=== PATIENT | female | born 1950 | race Caucasian/White ===

== ENCOUNTER 2024-10-27 15:46 | Observation (INO) ==
--- NOTE | 2024-10-27 17:40 | EKG ---
Test Reason : sob Blood Pressure : */* mmHG Vent. Rate : 70 BPM Atrial Rate : 70 BPM P-R Int : 134 ms QRS Dur : 94 ms QT Int : 410 ms P-R-T Axes : 28 5 24 degrees QTc Int : 442 ms Normal sinus rhythm Moderate voltage criteria for LVH, may be normal variant ( R in aVL , Rubio product ) Nonspecific ST abnormality Abnormal ECG No previous ECGs available Confirmed by Bill Arzate MD ([id number]) on 10/28/2024 7:33:55 AM Referred By: Confirmed By: Bill Arzate MD
[2024-10-27 19:23] LABS: BASOPHILS % (AUTO) 0.7 % (0.2-1.0); EOSINOPHILS # (AUTO) 0.1 x10^3/uL (0.0-0.2); EOSINOPHILS % (AUTO) 2.5 % (0.9-2.9); HEMATOCRIT 40.4 % (36.0-47.0); HEMOGLOBIN 13.9 g/dL (12.0-16.0); LYMPHOCYTES # (AUTO) 1.5 X10^3/uL (1.3-2.9); LYMPHOCYTES % (AUTO) 28.7 % (21.0-51.0); MEAN CORPUSCULAR HEMOGLOBIN 30.8 pg (27.0-34.0); MEAN CORPUSCULAR HGB CONC 34.4 g/dL (33.0-35.0); MEAN CORPUSCULAR VOLUME 89.4 fL (80.0-100.0); MEAN PLATELET VOLUME 7.5 fL (7.4-11.0); MONOCYTES # (AUTO) 0.4 x10^3/uL (0.3-0.8); MONOCYTES % (AUTO) 8.2 % (0.0-13.0); NEUTROPHILS # (AUTO) 3.2 x10^3/uL (2.2-4.8); NEUTROPHILS % (AUTO) 59.9 % (42.0-75.0); PLATELET COUNT 158 X10^3/uL (150.0-450.0); RED BLOOD COUNT 4.52 X10^6/uL (3.5-5.4); RED CELL DISTRIBUTION WIDTH 12.9 % (11.6-16.5); WHITE BLOOD COUNT 5.3 X10^3/uL (3.6-10.0)
[2024-10-27 19:32] LABS: ALANINE AMINOTRANSFERASE 15 Units/L (12-78); ALBUMIN 3.7 g/dL (3.4-5.0); ALKALINE PHOSPHATASE 76 Units/L (46-116); ASPARTATE AMINO TRANSFERASE 22 Units/L (15-37); BLOOD UREA NITROGEN 10 mg/dL (7-18); CALCIUM 8.8 mg/dL (8.5-10.1); CARBON DIOXIDE 27.3 mmol/L (21-32); CHLORIDE 101 mmol/L (98-107); CREATININE 1.23 mg/dL (0.55-1.02); GLUCOSE 93 mg/dL (65-99); POTASSIUM 3.3 mmol/L (3.5-5.1); SODIUM 138 mmol/L (136-145); TOTAL PROTEIN 7.3 g/dL (6.4-8.2); eGFR NON BLACK RACES 45 (>60)
[2024-10-27] MEDS: NS 250 ML IV 25 ML IV PRN (20:53)
[2024-10-27] MEDS: ZOSYN VIAL 3.375 GRAMS 3.375 G in NS 100 ML IV 100 ML IV SCH (20:53)
[2024-10-27] MEDS: ZOFRAN INJ 4 MG VIAL IVP PRN (20:55)
[2024-10-27] MEDS: PULMICORT NEB TX 0.5 MG NEB SCH (21:12)
[2024-10-27] MEDS: DUONEB 0.5 MG/3 MG (3 mL) NEB SCH (21:12)
[2024-10-27] MEDS ORDERED: ATIVAN TAB 0.5 MG PO PRN (21:37)
[2024-10-27] MEDS ORDERED: AUGMENTIN 875 MG/125 MG TAB PO SCH (22:00)
[2024-10-27] MEDS: NS 1,000 ML IV 1,000 ML IV SCH (22:30)
[2024-10-28 06:16] LABS: BASOPHILS % (AUTO) 0.5 % (0.2-1.0); EOSINOPHILS # (AUTO) 0.2 x10^3/uL (0.0-0.2); LYMPHOCYTES # (AUTO) 1.8 X10^3/uL (1.3-2.9); LYMPHOCYTES % (AUTO) 34.1 % (21.0-51.0); MEAN CORPUSCULAR HEMOGLOBIN 30.5 pg (27.0-34.0); MEAN CORPUSCULAR HGB CONC 34.3 g/dL (33.0-35.0); MEAN CORPUSCULAR VOLUME 89.1 fL (80.0-100.0); MEAN PLATELET VOLUME 7.4 fL (7.4-11.0); MONOCYTES # (AUTO) 0.5 x10^3/uL (0.3-0.8); MONOCYTES % (AUTO) 8.9 % (0.0-13.0); NEUTROPHILS # (AUTO) 2.8 x10^3/uL (2.2-4.8); NEUTROPHILS % (AUTO) 53.5 % (42.0-75.0); PLATELET COUNT 163 X10^3/uL (150.0-450.0); RED BLOOD COUNT 4.26 X10^6/uL (3.5-5.4); RED CELL DISTRIBUTION WIDTH 13.2 % (11.6-16.5); WHITE BLOOD COUNT 5.3 X10^3/uL (3.6-10.0)
[2024-10-28 06:25] LABS: ALANINE AMINOTRANSFERASE 15 Units/L (12-78); ALBUMIN 3.1 g/dL (3.4-5.0); ALKALINE PHOSPHATASE 66 Units/L (46-116); ASPARTATE AMINO TRANSFERASE 20 Units/L (15-37); BLOOD UREA NITROGEN 10 mg/dL (7-18); CALCIUM 8.3 mg/dL (8.5-10.1); CHLORIDE 103 mmol/L (98-107); CREATININE 1.08 mg/dL (0.55-1.02); GLUCOSE 90 mg/dL (65-99); POTASSIUM 3.5 mmol/L (3.5-5.1); SODIUM 140 mmol/L (136-145); TOTAL PROTEIN 6.4 g/dL (6.4-8.2); eGFR NON BLACK RACES 53 (>60)
--- NOTE | 2024-10-28 06:25 | RAD ---
EXAM:CHEST, 1 VIEWHISTORY:sob, cough;COMPARISON:NoneFINDINGS:The cardiomediastinal silhouette is normal in size.No acute airspace disease. No pneumothorax or effusion.No acute osseous abnormality.IMPRESSION:No acute cardiopulmonary disease.THIS IS AN ELECTRONICALLY VERIFIED FINAL REPORT10/28/2024 6:22 AM - Electronically signed by Anibal Sutton MD
[2024-10-28] MEDS ORDERED: CONSULT PHARMACY - POTASSIUM & MAGNESIUM XX SCH ×2 (08:00→09:00)
[2024-10-28] MEDS ORDERED: CITALOPRAM 40 MG PO SCH (09:00)
[2024-10-28] MEDS: BENICAR PO SCH (09:01)
[2024-10-28] MEDS: CELEBREX PO SCH (09:01)
[2024-10-28] MEDS: ZyrTEC TAB 10 MG PO SCH (09:02)
[2024-10-28] MEDS: CELEXA PO SCH (09:02)
[2024-10-28] MEDS: K-DUR TAB 20 MEQ PO SCH (09:02)
[2024-10-28] MEDS: MAG-OX TAB PO SCH (09:02)
--- NOTE | 2024-10-28 11:11 | DR.H&P ---
H&P History & Physical for Day of: H&P Date: 10/28/24 Chief Complaint Chief Complaint: SOB, cough History of Present Illness History of Present Illness: Ms Cardenas is a 74y/o female with a PMH of HTN, HLD and anxiety presented with worsening URI symptoms including cough, congestion and SOB. She had been sick since last week and was being treated outpatient with antibiotics. She was seen at PCP office yesterday with worsening symptoms so was directly admitted for further management. She continues to have dry hacking cough and SOB. She was initially on 2L NC. CXR was negative for acute changes. She is currently on Zosyn, nebs and pulmicort. Labs/imaging reviewed: -WBC 5.3 Hgb 13.0 Plt 163 K 3.5 BUN/Cr 05/27. Mag 1.8 -CXR: no acute changes -AIT pending -Blood Cx pending Plan: admit to med-surg, Wean O2 as tolerated. Continue nebs, pulmicort and IS. Continue IV Zosyn. Continue cough medicine, mucinex. Continue hydration. Will order CTA chest to evaluate further. Follow AIT and pending cultures. Resume h ome medications. Ambulate as tolerated. SCDs. Replace electrolytes prn. Monitor AM labs/imaging. Past Surgical History Surgical History: Cholecystectomy Family History Family Medical History: [place] Social History Does patient currently use any type of tobacco product: No Have you used tobacco products in the last 12 months: No Type of Tobacco Use: None Does any household member use tobacco: No Alcohol Use: None Drug Use: None Medications Home Medications: Home Medications Medication Instructions Recorded Confirmed Type amoxicillin 875 mg-potassium 1 tab PO BID 10/27/24 10/27/24 History clavulanate 125 mg tablet celecoxib 200 mg capsule 200 mg PO DAILY 10/27/24 10/27/24 History citalopram 40 mg tablet 40 mg PO DAILY 10/27/24 10/27/24 History levocetirizine 5 mg tablet 5 mg PO HS 10/27/24 10/27/24 History lorazepam 0.5 mg tablet 0.5 mg PO HS 10/27/24 10/27/24 History olmesartan 40 mg tablet 40 mg PO DAILY 10/27/24 10/27/24 History simvastatin 40 mg tablet 40 mg PO HS 10/27/24 10/27/24 History Allergies Allergies Allergy/AdvReac Type Severity Reaction Status Date / Time codeine AdvReac Mild Verified 10/27/24 17:45 Labs 10/28/24 05:37 10/28/24 05:37 Labs: 10/27/24 17:20 Sputum - Expectorated Sputum Sputum Culture - Preliminary 10/27/24 17:20 Sputum - Expectorated Sputum - Final Laboratory WBC 5.3 X10^3/uL (3.6-10.0) 10/28/24 05:37 RBC 4.26 X10^6/uL (3.5-5.4) 10/28/24 05:37 Hgb 13.0 g/dL (12.0-16.0) 10/28/24 05:37 Hct 38.0 % (36.0-47.0) 10/28/24 05:37 MCV 89.1 fL (80.0-100.0) 10/28/24 05:37 MCH 30.5 pg (27.0-34.0) 10/28/24 05:37 MCHC 34.3 g/dL (33.0-35.0) 10/28/24 05:37 RDW 13.2 % (11.6-16.5) 10/28/24 05:37 Plt Count 163 X10^3/uL (150.0-450.0) 10/28/24 05:37 MPV 7.4 fL (7.4-11.0) 10/28/24 05:37 Neut % (Auto) 53.5 % (42.0-75.0) 10/28/24 05:37 Lymph % (Auto) 34.1 % (21.0-51.0) 10/28/24 05:37 [place] % (Auto) 8.9 % (0.0-13.0) 10/28/24 05:37 Eos % (Auto) 3.0 % (0.9-2.9) H 10/28/24 05:37 Baso % (Auto) 0.5 % (0.2-1.0) 10/28/24 05:37 Neut # (Auto) 2.8 x10^3/uL (2.2-4.8) 10/28/24 05:37 Lymph # (Auto) 1.8 X10^3/uL (1.3-2.9) 10/28/24 05:37 [place] # (Auto) 0.5 x10^3/uL (0.3-0.8) 10/28/24 05:37 Eos # (Auto) 0.2 x10^3/uL (0.0-0.2) 10/28/24 05:37 Baso # (Auto) 0.0 X10^3/uL (0.0-0.1) 10/28/24 05:37 Absolute Nucleated RBC 0.3 /100WBC 10/28/24 05:37 Sodium 140 mmol/L (136-145) 10/28/24 05:37 Corrected Sodium TNP 10/28/24 05:37 Potassium 3.5 mmol/L (3.5-5.1) 10/28/24 05:37 Chloride 103 mmol/L (98-107) 10/28/24 05:37 Carbon Dioxide 28.0 mmol/L (21-32) 10/28/24 05:37 BUN 10 mg/dL (7-18) 10/28/24 05:37 Creatinine 1.08 mg/dL (0.55-1.02) H 10/28/24 05:37 Est GFR (MDRD) Af Amer > 60 (>60) 10/28/24 05:37 Est GFR (MDRD) Non-Af 53 (>60) L 10/28/24 05:37 Glucose 90 mg/dL (65-99) 10/28/24 05:37 Lactic Acid 0.8 mmol/L (0.4-2.0) 10/27/24 18:21 Calcium 8.3 mg/dL (8.5-10.1) L 10/28/24 05:37 Corrected Calcium 9.0 mg/dL (8.5-10.1) 10/28/24 05:37 Magnesium 1.8 mg/dL (2.0-2.9) L 10/28/24 05:37 Total Bilirubin 0.70 mg/dL (0.2-1.0) 10/28/24 05:37 AST 20 Units/L (15-37) 10/28/24 05:37 ALT 15 Units/L (12-78) 10/28/24 05:37 Alkaline Phosphatase 66 Units/L (46-116) 10/28/24 05:37 Troponin I High Sens 7.0 ng/L (4.0-60.0) 10/27/24 18:21 B-Natriuretic Peptide 60.9 pg/mL (0-79) 10/27/24 18:21 Total Protein 6.4 g/dL (6.4-8.2) 10/28/24 05:37 Albumin 3.1 g/dL (3.4-5.0) L 10/28/24 05:37 Globulin 3.3 g/dL (2.5-4.5) 10/28/24 05:37 Albumin/Globulin Ratio 0.9 Ratio (1.1-2.1) L 10/28/24 05:37 Review of Systems Constitutional: Weakness and Malaise Eyes: No Symptoms Reported ENT: No Symptoms Reported Respiratory: Cough, Shortness of Breath and SOB with Excertion Cardiovascular: No Symptoms Reported Gastrointestinal: Nausea and Vomiting Genitourinary: No Symptoms Reported Musculoskeletal: Other (chest wall pain) Skin: No Symptoms Reported Neurological: No Symptoms Reported Physical Exam Vital Signs: Vital Signs Temperature 98.4 F Temperature 98.2 F Temperature 98.2 F Pulse Rate [Right Radial] 77 Pulse Rate [Right Radial] 78 Pulse Rate [Right Radial] 78 Pulse Rate 77 Pulse Rate 80 Respiratory Rate 20 Respiratory Rate 16 Respiratory Rate 16 Blood Pressure [Left Arm] 162/85 Blood Pressure [Left Arm] 135/74 Blood Pressure [Left Arm] 135/74 O2 Sat by Pulse Oximetry 94 O2 Sat by Pulse Oximetry 98 O2 Sat by Pulse Oximetry 97 O2 Sat by Pulse Oximetry 94 O2 Sat by Pulse Oximetry 94 Oriented: Normal Eyes: Normal Throat: Normal Respiratory: Rhonchi Throughout Auscultation: Bowel Sounds: Normal Palpation: Normal Tenderness: Normal Skin: Normal Musculoskeletal: Normal Psychiatric: Normal Mood Description: Calm Affect: Normal Speech Pattern: Clear and Appropriate Assessment/Plan (1) Acute respiratory failure: Qualifiers: Respiratory failure complication: hypoxia Qualified Code(s): J96.01 - Acute respiratory failure with hypoxia Status: Acute (2) Bronchitis: Status: Acute (3) Hypomagnesemia: Status: Acute (4) Dehydration: Status: Acute (5) HTN (hypertension): Qualifiers: Hypertension type: primary hypertension Qualified Code(s): I10 - Essential (primary) hypertension Status: Chronic (6) Anxiety: Status: Chronic Review H&P Reviewed: Yes Patient was examined?: Yes
[2024-10-28] MEDS: MUCINEX DM PO SCH (11:30)
[2024-10-28] MEDS: DUONEB 0.5 MG/3 MG (3 mL) NEB SCH (13:11)
--- NOTE | 2024-10-28 15:53 | CT ---
EXAM: CTA CHEST WITH INTRAVENOUS CONTRAST HISTORY: Shortness of breath. Cough. TECHNIQUE: Spiral axial CT images are obtained through the chest with the administration of intraveno us contrast. Coronal, sagittal and 3D MIP images are reformatted. COMPARISON: None available. FINDINGS: CARDIOVASCULAR: There is no evidence for pulmonary embolic disease. There is mild cardiomegaly with four-chamber enlargement. No pericardial effusion is seen. There is aortic atherosclerosis marked b y calcified mural plaques, without evidence for aortic aneurysm, dissection, or rupture. MEDIASTINUM AND PAULA: There is evidence for nonspecific shotty symmetrical mediastinal and hilar lymp hadenopathy; DDX includes (but is not limited to) granulomatous lymphadenopathy (e.g. sarcoidosis and tuberculosis) , and malignant lymphadenopathy (e.g. lymphoma and metastatic disease). Clinical corre lation is advised. No mass lesion, emphysema, or abnormal fluid collection is seen. There is a larg e (approximately 7.5 cm transverse by 6.4 cm AP by 7.8 cm CC) retrocardiac hiatal hernia containing c ollapsed proximal stomach; DDx includes sequela of distal esophagectomy and gastric pull-up reanastom osis. Correlation with the surgical history is advised. Axial image 89; sagittal image 87. LUNGS: There is mild diffuse subpleural interstitial fibrosis, especially in the lower lung kuo; n onspecific finding; consider sarcoidosis in light of concomitant lymphadenopathy. There is no acute parenchymal infiltrate, lung nodule, or endobronchial obstructing lesion seen. No pleural effusion o r pneumothorax is evident. CHEST WALL: There are no chest wall lesions seen. The visualized bony structures are within normal l imits. No axillary lymphadenopathy is noted. UPPER ABDOMEN: Limited views through the upper abdomen demonstrate no gross acute abnormality. There is an approximately 2.8 cm exophytic anterior right lower pole renal cyst. Status post cholecystect americo. IMPRESSION: 1. No evidence for pulmonary embolic disease. 2. Mild cardiomegaly with four-chamber enlargement. 3. Aortic atherosclerosis marked by calcified mural plaques, without evidence for aortic aneurysm, d issection, or rupture. 4. Evidence for nonspecific shotty symmetrical mediastinal and hilar lymphadenopathy; DDX includes ( but is not limited to) granulomatous lymphadenopathy (e.g. sarcoidosis and tuberculosis) , and malign ant lymphadenopathy (e.g. lymphoma and metastatic disease). Clinical correlation is advised. 5. Large (approximately 7.5 cm transverse by 6.4 cm AP by 7.8 cm CC) retrocardiac hiatal hernia cont aining collapsed proximal stomach; DDx includes sequela of distal esophagectomy and gastric pull-up r eanastomosis. Correlation with the surgical history is advised. Axial image 89; sagittal image 87. 6. Mild diffuse subpleural interstitial fibrosis, especially in the lower lung kuo; nonspecific f inding; consider sarcoidosis in light of concomitant lymphadenopathy. 3. No acute parenchymal infiltrate, pleural effusion, endobronchial obstructing lesion or pneumothor ax seen. THIS IS AN ELECTRONICALLY VERIFIED FINAL REPORT 10/28/2024 3:48 PM - Electronically signed by Zaki Winter MD
[2024-10-28 17:43] VITALS: BMI 33.3
[2024-10-28] MEDS: ZOCOR TAB 40 MG PO SCH (20:10)
[2024-10-28] MEDS: MAALOX or MYLANTA PO PRN (21:51)
[2024-10-29 07:03] LABS: ALANINE AMINOTRANSFERASE 13 Units/L (12-78); ALBUMIN 3.1 g/dL (3.4-5.0); ALKALINE PHOSPHATASE 65 Units/L (46-116); ASPARTATE AMINO TRANSFERASE 19 Units/L (15-37); BLOOD UREA NITROGEN 8 mg/dL (7-18); CALCIUM 8.1 mg/dL (8.5-10.1); CARBON DIOXIDE 26.8 mmol/L (21-32); CHLORIDE 107 mmol/L (98-107); COR CA(FOR HYPOALB) 8.8 mg/dL (8.5-10.1); CREATININE 1.06 mg/dL (0.55-1.02); GLUCOSE 96 mg/dL (65-99); POTASSIUM 4.1 mmol/L (3.5-5.1); SODIUM 141 mmol/L (136-145); TOTAL PROTEIN 6.4 g/dL (6.4-8.2); eGFR NON BLACK RACES 54 (>60)
[2024-10-29 07:38] LABS: BASOPHILS % (AUTO) 0.8 % (0.2-1.0); EOSINOPHILS # (AUTO) 0.1 x10^3/uL (0.0-0.2); EOSINOPHILS % (AUTO) 2.2 % (0.9-2.9); HEMATOCRIT 38.3 % (36.0-47.0); LYMPHOCYTES # (AUTO) 1.7 X10^3/uL (1.3-2.9); LYMPHOCYTES % (AUTO) 31.2 % (21.0-51.0); MEAN CORPUSCULAR HEMOGLOBIN 30.4 pg (27.0-34.0); MEAN CORPUSCULAR VOLUME 89.5 fL (80.0-100.0); MEAN PLATELET VOLUME 7.7 fL (7.4-11.0); MONOCYTES # (AUTO) 0.3 x10^3/uL (0.3-0.8); MONOCYTES % (AUTO) 5.8 % (0.0-13.0); NEUTROPHILS # (AUTO) 3.4 x10^3/uL (2.2-4.8); RED BLOOD COUNT 4.28 X10^6/uL (3.5-5.4); RED CELL DISTRIBUTION WIDTH 12.8 % (11.6-16.5); WHITE BLOOD COUNT 5.6 X10^3/uL (3.6-10.0)
[2024-10-29 07:39] LABS: PLATELET COUNT 163 X10^3/uL (150.0-450.0)
[2024-10-29] MEDS: TYLENOL 325 MG TAB PO PRN (08:37)
[2024-10-29] MEDS: PREDNISONE TAB 20 MG PO SCH (10:10)
[2024-10-29 11:59] VITALS: BP 147/81; PULSE 79; RESP 20; TEMP 97.8; O2SAT 97
[2024-10-29] MEDS: TUSSIONEX PENNKINETIC SUSP PO PRN (14:50)
--- NOTE | 2024-11-04 10:47 | W.DIS.FURT ---
Summary of Discharge Discharge Summary of Date Date of Exam: 10/29/24 Admission Date Date of Admission: 10/28/24 Admission Diagnosis Hospital Course: Ms Cardenas is a 74y/o female with a PMH of HTN, HLD and anxiety presented with worsening URI symptoms including cough, congestion and SOB. She had been sick since last week and was being treated outpatient with antibiotics. She was seen at PCP office yesterday with worsening symptoms so was directly admitted for further management. She continues to have dry hacking cough and SOB. She was initially on 2L NC. CXR was negative for acute changes. She is currently on Zosyn, nebs and pulmicort. AIT showed RSV infection. CTA-chest was also done. It was negative for PE but did show hilar LAD, possible malignancy LAD. Mild diffuse interstitial fibrosis, consider sarcoidosis. These findings were discussed with the patient. Her labs were monitored daily and electrolytes replaced as needed. She was on room air. She was ambulating and stable for discharge. She was sent home on PO steroids. She will f/u with PCP and have outpatient work up. Vital Signs: Vital Signs (72 hours) 10/27/24 17:30 10/27/24 17:20 10/27/24 17:46 Temperature 97.5 F L 97.5 F L Pulse Rate 84 Pulse Rate [Bilateral Radial] 77 Pulse Rate [Right Radial] Respiratory Rate 19 19 Blood Pressure [Left Arm] 134/77 O2 Sat by Pulse Oximetry 93 L 96 Oxygen Delivery Method Room Air Room Air Nasal Cannula Oxygen Flow Rate 2 2 FIO2% 28 10/27/24 17:30 10/27/24 20:00 10/27/24 19:00 Temperature 97.9 F Pulse Rate Pulse Rate [Bilateral Radial] Pulse Rate [Right Radial] 73 Respiratory Rate 16 Blood Pressure [Left Arm] 130/71 O2 Sat by Pulse Oximetry 95 Oxygen Delivery Method Room Air Room Air Room Air Oxygen Flow Rate FIO2% 10/28/24 00:00 10/27/24 21:10 10/27/24 21:05 Temperature 98.0 F Pulse Rate 105 H Pulse Rate [Bilateral Radial] Pulse Rate [Right Radial] 76 Respiratory Rate 16 Blood Pressure [Left Arm] 131/59 O2 Sat by Pulse Oximetry 96 97 Oxygen Delivery Method Room Air Nasal Cannula Oxygen Flow Rate 2 FIO2% 28 10/28/24 04:00 10/28/24 04:00 10/28/24 05:50 Temperature 98.2 F 98.2 F Pulse Rate 80 Pulse Rate [Bilateral Radial] Pulse Rate [Right Radial] 78 78 Respiratory Rate 16 16 Blood Pressure [Left Arm] 135/74 135/74 O2 Sat by Pulse Oximetry 94 L 94 L 97 Oxygen Delivery Method Room Air Room Air Oxygen Flow Rate FIO2% 10/28/24 05:40 10/28/24 07:00 10/28/24 08:00 Temperature 98.4 F Pulse Rate Pulse Rate [Bilateral Radial] Pulse Rate [Right Radial] 77 Respiratory Rate 20 Blood Pressure [Left Arm] 162/85 O2 Sat by Pulse Oximetry 98 Oxygen Delivery Method Nasal Cannula Room Air Room Air Oxygen Flow Rate 2 FIO2% 28 10/28/24 09:12 10/28/24 09:12 10/28/24 11:58 Temperature 98.1 F Pulse Rate 77 Pulse Rate [Bilateral Radial] Pulse Rate [Right Radial] 82 Respiratory Rate 20 Blood Pressure [Left Arm] 120/56 O2 Sat by Pulse Oximetry 94 L 94 L Oxygen Delivery Method Room Air Room Air Oxygen Flow Rate 2 FIO2% 28 10/28/24 15:42 10/28/24 19:00 10/28/24 20:00 Temperature 97.8 F 97.8 F Pulse Rate Pulse Rate [Bilateral Radial] Pulse Rate [Right Radial] 76 81 Respiratory Rate 20 16 Blood Pressure [Left Arm] 129/60 137/69 O2 Sat by Pulse Oximetry 94 L 99 Oxygen Delivery Method Room Air Room Air Room Air Oxygen Flow Rate FIO2% 10/29/24 00:00 10/28/24 21:13 10/29/24 03:30 Temperature 98.7 F Pulse Rate 66 Pulse Rate [Bilateral Radial] Pulse Rate [Right Radial] 78 Respiratory Rate 18 Blood Pressure [Left Arm] 125/68 O2 Sat by Pulse Oximetry 94 L 98 Oxygen Delivery Method Room Air Room Air Oxygen Flow Rate FIO2% 10/29/24 04:00 10/29/24 08:37 10/29/24 08:00 Temperature 98.5 F Pulse Rate Pulse Rate [Bilateral Radial] Pulse Rate [Right Radial] 75 77 Respiratory Rate 16 18 20 Blood Pressure [Left Arm] 145/80 137/74 O2 Sat by Pulse Oximetry 93 L 97 Oxygen Delivery Method Room Air Room Air Oxygen Flow Rate FIO2% 10/29/24 08:55 10/29/24 08:56 10/29/24 07:00 Temperature Pulse Rate 63 Pulse Rate [Bilateral Radial] Pulse Rate [Right Radial] Respiratory Rate 18 Blood Pressure [Left Arm] O2 Sat by Pulse Oximetry 98 Oxygen Delivery Method Room Air Room Air Oxygen Flow Rate 2 FIO2% 28 10/29/24 09:37 10/29/24 11:58 Temperature 97.8 F Pulse Rate Pulse Rate [Bilateral Radial] Pulse Rate [Right Radial] 79 Respiratory Rate 17 20 Blood Pressure [Left Arm] 147/81 O2 Sat by Pulse Oximetry 97 Oxygen Delivery Method Room Air Oxygen Flow Rate FIO2% Labs: Laboratory Last Values WBC 5.6 X10^3/uL (3.6-10.0) 10/29/24 06:34 RBC 4.28 X10^6/uL (3.5-5.4) 10/29/24 06:34 Hgb 13.0 g/dL (12.0-16.0) 10/29/24 06:34 Hct 38.3 % (36.0-47.0) 10/29/24 06:34 MCV 89.5 fL (80.0-100.0) 10/29/24 06:34 MCH 30.4 pg (27.0-34.0) 10/29/24 06:34 MCHC 34.0 g/dL (33.0-35.0) 10/29/24 06:34 RDW 12.8 % (11.6-16.5) 10/29/24 06:34 Plt Count 163 X10^3/uL (150.0-450.0) 10/29/24 06:34 MPV 7.7 fL (7.4-11.0) 10/29/24 06:34 Neut % (Auto) 60.0 % (42.0-75.0) 10/29/24 06:34 Lymph % (Auto) 31.2 % (21.0-51.0) 10/29/24 06:34 [place] % (Auto) 5.8 % (0.0-13.0) 10/29/24 06:34 Eos % (Auto) 2.2 % (0.9-2.9) 10/29/24 06:34 Baso % (Auto) 0.8 % (0.2-1.0) 10/29/24 06:34 Neut # (Auto) 3.4 x10^3/uL (2.2-4.8) 10/29/24 06:34 Lymph # (Auto) 1.7 X10^3/uL (1.3-2.9) 10/29/24 06:34 [place] # (Auto) 0.3 x10^3/uL (0.3-0.8) 10/29/24 06:34 Eos # (Auto) 0.1 x10^3/uL (0.0-0.2) 10/29/24 06:34 Baso # (Auto) 0.0 X10^3/uL (0.0-0.1) 10/29/24 06:34 Absolute Nucleated RBC 0.1 /100WBC 10/29/24 06:34 Sodium 141 mmol/L (136-145) 10/29/24 06:34 Corrected Sodium TNP 10/29/24 06:34 Potassium 4.1 mmol/L (3.5-5.1) 10/29/24 06:34 Chloride 107 mmol/L (98-107) 10/29/24 06:34 Carbon Dioxide 26.8 mmol/L (21-32) 10/29/24 06:34 BUN 8 mg/dL (7-18) 10/29/24 06:34 Creatinine 1.06 mg/dL (0.55-1.02) H 10/29/24 06:34 Est GFR (MDRD) Af Amer > 60 (>60) 10/29/24 06:34 Est GFR (MDRD) Non-Af 54 (>60) L 10/29/24 06:34 Glucose 96 mg/dL (65-99) 10/29/24 06:34 Lactic Acid 0.8 mmol/L (0.4-2.0) 10/27/24 18:21 Calcium 8.1 mg/dL (8.5-10.1) L 10/29/24 06:34 Corrected Calcium 8.8 mg/dL (8.5-10.1) 10/29/24 06:34 Magnesium 2.0 mg/dL (2.0-2.9) 10/29/24 06:34 Total Bilirubin 0.60 mg/dL (0.2-1.0) 10/29/24 06:34 AST 19 Units/L (15-37) 10/29/24 06:34 ALT 13 Units/L (12-78) 10/29/24 06:34 Alkaline Phosphatase 65 Units/L (46-116) 10/29/24 06:34 Troponin I High Sens 7.0 ng/L (4.0-60.0) 10/27/24 18:21 B-Natriuretic Peptide 60.9 pg/mL (0-79) 10/27/24 18:21 Total Protein 6.4 g/dL (6.4-8.2) 10/29/24 06:34 Albumin 3.1 g/dL (3.4-5.0) L 10/29/24 06:34 Globulin 3.3 g/dL (2.5-4.5) 10/29/24 06:34 Albumin/Globulin Ratio 0.9 Ratio (1.1-2.1) L 10/29/24 06:34 Resp Viral Panel (PCR) See scanned report 10/27/24 17:20 Reason For Visit: PNUEMONIA Discharge Diagnosis All Active Problems (Updated 10/28/24 @ 11:11 by Kerry Lovell MD) Anxiety (Chronic) HTN (hypertension) (Chronic) Dehydration (Acute) Hypomagnesemia (Acute) Bronchitis (Acute) Acute respiratory failure (Acute) Plan of Treatment: Continue with present treatment and follow up plan. Pt is to keep follow up appointment as instructed and take medications as ordered. Discharge Medications Discharge Medications: codeine Adverse Reaction (Mild, Verified 10/27/24 17:45) CONTINUE taking the following medications celecoxib 200 mg capsule 200 mg PO DAILY 10/27/24 [History] citalopram 40 mg tablet 40 mg PO DAILY 10/27/24 [History] levocetirizine 5 mg tablet 5 mg PO HS 10/27/24 [History] lorazepam 0.5 mg tablet 0.5 mg PO HS 10/27/24 [History] olmesartan 40 mg tablet 40 mg PO DAILY 10/27/24 [History] simvastatin 40 mg tablet 40 mg PO HS 10/27/24 [History] New Prescriptions albuterol sulfate 90 mcg/actuation aerosol inhaler 2 puff inhalation Q6H PRN shortness of breath or wheezing #6.7 grams 10/29/24 [Rx] prednisone 20 mg tablet 20 mg PO BID 5 days #10 tabs 10/29/24 [Rx] Discharge Disposition Discharge Disposition: home Discharge Condition: stable Discharge Plan Discharge Plan Hospital Course: Ms Cardenas is a 74y/o female with a PMH of HTN, HLD and anxiety presented with worsening URI symptoms including cough, congestion and SOB. She had been sick since last week and was being treated outpatient with antibiotics. She was seen at PCP office yesterday with worsening symptoms so was directly admitted for further management. She continues to have dry hacking cough and SOB. She was initially on 2L NC. CXR was negative for acute changes. She is currently on Zosyn, nebs and pulmicort. AIT showed RSV infection. CTA-chest was also done. It was negative for PE but did show hilar LAD, possible malignancy LAD. Mild diffuse interstitial fibrosis, consider sarcoidosis. These findings were discussed with the patient. Her labs were monitored daily and electrolytes replaced as needed. She was on room air. She was ambulating and stable for discharge. She was sent home on PO steroids. She will f/u with PCP and have outpatient work up. Patient Disposition: 01 HOME, SELF-CARE Condition: Stable Health Concerns: Post Hospitalization: new medications and changes needed to prevent readmission or further decline. Pt educated and given instructions on all concerns. Care Plan Goals: Problem: Respiratory Complications Goal: Improved Uncomplicated Respiratory Status Instructions: Follow provided instructions. Follow up with primary physician as directed. Contact primary care physician or report to the closest Emergency Room if condition worsens. Plan of Treatment: Continue with present treatment and follow up plan. Pt is to keep follow up appointment as instructed and take medications as ordered. Prescription drug monitoring program results: PDMP reviewed and no concerns identified Prescriptions: New albuterol sulfate 90 mcg/actuation HFA aerosol inhaler 2 puff inhalation Q6H PRN (Reason: shortness of breath or wheezing) Qty: 6.7 0RF Continued celecoxib 200 mg Capsule 200 mg PO DAILY Rx Instructions: take 1 capsule every day citalopram 40 mg Tablet 40 mg PO DAILY simvastatin 40 mg Tablet 40 mg PO HS lorazepam 0.5 mg Tablet 0.5 mg PO HS olmesartan 40 mg Tablet 40 mg PO DAILY levocetirizine 5 mg Tablet 5 mg PO HS Discontinued amoxicillin-pot clavulanate 875-125 mg Tablet 1 tab PO BID Rx Instructions: take 1 tablet by mouth two times a day with food for 10 days Orders to Discharge Patient Discharge Orders: Discharge (Routine); Ordered 10/29/24 Ordered By: Kerry Lovell Follow ups/Referrals Follow ups/Referrals: [facility] [Other] (Home O[facility]) [place] [Nurse Practitioner] - 1 WEEK Instructions Instructions: Hypomagnesemia, How to Use an Incentive Spirometer, Acute Bronchitis, Adult, [id number], Respiratory Syncytial Virus Infection, Adult, Community-Acquired Pneumonia, Adult, [id number] Stand Alone Forms: Find Help Web Site, Post Hospital Follow Up Care
== END 2024-10-29 17:00 | disposition home or self-care (01) ==
LOC: MED/SURG
PROVIDERS: ADMIT Internal Medicine; ATTEND Internal Medicine